=== PATIENT | male | born 1940 | race Two or more races ===

== ENCOUNTER 2017-03-11 21:42 | Inpatient (IN) | payer MEDICARE, BC ==
[~2017-03-11] VITALS: Ht 172.7 cm; Wt 81.6 kg
--- NOTE | 2017-03-11 21:55 | NUR ---
76 YO MALE BB RA FROM HOME. PT IS ALERT X 2, UNABLE TO TELL ME TIME OR SITUATION. PER FAMILY THIS IS HIS BASE LINE. PT DS TO ER BED, SKIN WARM AND DRY, RR EVEN AND UNLABORED. PT GOWNED, PLACE ON PERSONAL DEVELOPMENT EDUCATOR. NOTED DIAPHORETIC AND TACHYCARDIC. BROOKS NOTIFIED. AWAITING ORDERS FORM PROVIDER, WILL CONTINUE TO MONITOR
--- NOTE | 2017-03-11 21:56 | NUR ---
18G LEFT FA IV STARTED, BLOOD SAMPLE OBTAINED AND SENT TO LAB
--- NOTE | 2017-03-11 22:05 | NUR ---
EMT AT BED SIDE FOR EKG
[2017-03-11] MEDS ORDERED: ACETAMINOPHEN ES 500 MG TABLET ONE (22:11)
--- NOTE | 2017-03-11 22:15 | NUR ---
PT TRANASPORTED TO CT VIA GURNEY BY RADIOLOGY TEAM
[2017-03-11 22:18] LABS: CALCIUM, SERUM 8.6 mg/dL (8.5-10.1); CARBON DIOXIDE 24 mmol/L (21-32); CHLORIDE 103 mmol/L (98-107); CREATININE 1.2 mg/dL (0.6-1.3); GLUCOSE 138 mg/dL (74-106); SODIUM SERUM 138 mmol/L (136-145); UREA NITROGEN, BLOOD 20 mg/dL (7-18)
[2017-03-11 22:19] LABS: INR 1.81 (0.87-1.13); PROTHROMBIN TIME 20.1 SECS (9.5-12.7)
[2017-03-11 22:24] LABS: ALANINE AMINOTRANSFERASE 34 U/L (12-78); ALBUMIN 3.3 g/dL (3.4-5.0); ALKALINE PHOSPHATASE 76 U/L (46-116); ASPARTATE AMINOTRANSFERASE 29 U/L (15-37); BASOPHILS % (AUTO) 0.1 % (0.0-2.0); BILIRUBIN,DIRECT 0.2 mg/dL (0.0-0.2); BILIRUBIN,TOTAL 0.7 mg/dL (0.2-1.0); HEMATOCRIT 45 % (39-51); HEMOGLOBIN 15.1 g/dL (13.5-17.5); LYMPHOCYTES % (AUTO) 13.9 % (20.0-44.0); MEAN CORPUSCULAR HEMOGLOBIN 28 PG (26.0-33.0); MEAN CORPUSCULAR HGB CONC 33 g/dl (31.0-36.0); MEAN CORPUSCULAR VOLUME 85 fL (80-96); MONOCYTES # (AUTO) 0.7 /CMM (0.1-1.30); MONOCYTES % (AUTO) 9.8 % (2.0-12.0); NEUTROPHILS # (AUTO) 5.4 /CMM (1.8-8.9); NEUTROPHILS % (AUTO) 76.2 % (43.0-81.0); PLATELET COUNT (AUTO) 122 /CMM (150-450); RDW COEFFICIENT OF VARIATION 15.1 (11.5-15.0); RED BLOOD CELL COUNT(AUTO) 5.36 MIL/uL (4.5-6.0); TOTAL PROTEIN, SERUM 6.9 g/dL (6.4-8.2); WHITE BLOOD COUNT (AUTO) 7.1 K/uL (4.3-11.0)
[2017-03-11 22:25] LABS: TROPONIN I < 0.017 ng/mL (0.00-0.056)
[2017-03-11 22:29] LABS: APPEARANCE,URINE CLEAR (CLEAR); BILIRUBIN,URINE NEGATIVE (NEGATIVE); BLOOD, URINE 3+ Ery/uL (NEGATIVE); COLOR,URINE YELLOW (YELLOW); KETONES,URINE NEGATIVE (NEGATIVE); LEUKOCYTE ESTERASE ,URINE NEGATIVE (NEGATIVE); NITRITE, URINE NEGATIVE (NEGATIVE); PH,URINE 5.5 (5.0-8.0); PROTEIN,URINE TRACE mg/dl (NEGATIVE); UGLUCOSE NEGATIVE (NEGATIVE); UROBILINOGEN,URINE 0.2 EU/dL (0.2)
[2017-03-11] MEDS ORDERED: ACETAMINOPHEN 325 MG TABLET PO ONE (22:30)
[2017-03-11] MEDS ORDERED: IV NS 0.9% 500 ML BAG IV ONE (22:30)
[2017-03-11] MEDS ORDERED: IV NS 0.9% 1,000 ML BAG IV ONE ×2 (22:30)
[2017-03-11 22:35] LABS: BACTERIA,URINE None seen /HPF (None Seen); RBC,URINE 21-50 /HPF (0-2); SQUAMOUS EPITHELIAL CELL,UR Few /HPF (None Seen); WBC,URINE 0-2 /HPF (0-3)
--- NOTE | 2017-03-11 22:36 | NUR ---
MEDICATED PT ORDERED
[2017-03-11] MEDS ORDERED: CEFTRIAXONE 1GM BAG (ER ONLY) 50 ML IV ONE (23:29)
[2017-03-11] MEDS ORDERED: AZITHROMYCIN 500 MG VIAL ONE (23:29)
[2017-03-11] MEDS ORDERED: AZITHROMYCIN 500 MG in IV D5W 250 ML IV ONE (23:30)
[2017-03-11] MEDS ORDERED: CEFTRIAXONE 1GM BAG (ER ONLY) 1 GM/50 ML PIGGYBACK IV ONE (23:30)
--- NOTE | 2017-03-12 | NUR ---
RN ADMITTING NOTES Pt ARRIVED TO FLOOR VIA GURNEY. Pt IS ASLEEP, BUT EASILY AWAKENED. Pt IS A/OX3, VERBAL, ABLE TO MAKE NEEDS KNOWN. AND SON AT BEDSIDE. NO S/S OF ACUTE DISTRESS OR SOB. ON TELE SR. IV ACCESS ON LFA #18G. SAFETY MEASURES IN PLACE. BED LOW, LOCKED, HOB ELEVATED, SIDE RAILS UP, CALL LIGHT AND BEDSIDE TABLE WITHIN REACH. WILL CONTINUE TO MONITOR Pt THROUGHOUT THE NIGHT FOR SAFETY.
[2017-03-12] MEDS ORDERED: WARF6TAB23 PO (00:57)
[2017-03-12] MEDS ORDERED: CEFTRIAXONE 1 G in IV D5W 50 ML IV SCH ×2 (02:30→22:00)
[2017-03-12] MEDS ORDERED: ONDANSETRON HCL/PF 4 MG/2 ML VIAL IVP PRN (02:30)
[2017-03-12] MEDS ORDERED: AZITHROMYCIN 250 MG TABLET PO SCH ×2 (02:30→21:00)
[2017-03-12] MEDS ORDERED: ACETAMINOPHEN 325 MG TABLET PO PRN (02:30)
--- NOTE | 2017-03-12 02:30 | NUR ---
RN NOTES ROCEPHIN AND ZITHROMAX IV ALREADY GIVEN IN ER PRIOR TO ADMISSION TO [facility].
[2017-03-12] MEDS ORDERED: DEXAMETHASONE SOD PHOSPHATE 10 MG/ML VIAL IV ONE (03:30)
[2017-03-12] MEDS ORDERED: IBUPROFEN 600 MG TABLET PO PRN (03:30)
[2017-03-12 04:00] VITALS: BP 144/69
--- NOTE | 2017-03-12 06:44 | NUR ---
RN CLOSING NOTES NO SIGNIFICANT CHANGES IN Pt's CONDITION. Pt REMAINED STABLE THROUGHOUT THE NIGHT. NO S/S OF ACUTE DISTRESS OR SOB NOTED. ALL NEEDS MET AND ATTENDED TO. SAFETY MEASURES IN PLACE. TELE READING SR 66. WILL ENDORSE TO DAYSHIFT RN FOR Pt's JEANNE.
--- NOTE | 2017-03-12 07:10 | NUR ---
RN NOTES PT IS IN BED, AWAKE AND ALERT, RESTING COMFORTABLY. IV ON LFA INTACT AND SALINE LOCKED. PT ON O2 2L VIA NASAL CANNULA, NO SOB OR DISTRESS NOTED. PT HAS NO COMPLAINTS OF PAIN AT THIS TIME. SAFETY MEASURES ARE IN PLACE, CALL LIGHT IS IN REACH. WILL CONTINUE TO MONITOR.
[2017-03-12 07:15] VITALS: BP 125/78
[2017-03-12 08:00] VITALS: BP 125/78
[2017-03-12] MEDS: MENTHOL/CETYLPYRD (CEPACOL) 1 LOZ LOZENGE PO PRN ×2 (15:06→20:40)
[2017-03-12 16:00] VITALS: BP 130/73
[2017-03-12 16:53] LABS: INR 1.53 (0.87-1.13); PROTHROMBIN TIME 16.8 SECS (9.5-12.7)
[2017-03-12] MEDS ORDERED: WARFARIN SODIUM 2 MG TABLET PO SCH (17:00)
--- NOTE | 2017-03-12 19:10 | NUR ---
RN NOTES PT IS SITTING IN CHAIR AT BEDSIDE, WITH WALKER IN REACH. NO SIGNS OF DISTRESS OR PAIN NOTED. IV ON LFA INTACT AND PATENT, SALINE LOCKED. PT ON O2 VIA NASAL CANNULA 2L, SATING 97. ALL MEDS WERE GIVEN ORDERED. SAFETY MEASURES ARE IN PLACE. CALL LIGHT IS IN REACH. WILL ENDORSE TO STORE DETECTIVE RN FOR CONTINUITY OF CARE.
--- NOTE | 2017-03-12 19:30 | NUR ---
MS RN OPENING NOTES: PT IS SITTING UP IN CHAIT AT BEDSIDE. WALKER IS IN REACH. NO COMPLAINTS OF PAIN. NO S/S OF DISTRESS NOTED AT THIS TIME. PT HAS IV ON L FOREARM #18G AND IS PATENT AND INTACT. PT IS S/L. PT VOICED THAT HE HAS BEEN HAVING A SORE THROAT AND ASKING FOR CEPACOL. URINAL AT BEDSIDE. CALL LIGHT WITHIN PT'S REACH. BED KEPT IN LOW, LOCKED POSITION, AND SIDE RAILS X 2 UP. WILL CONTINUE TO MONITOR PT.
[2017-03-12 20:00] VITALS: BP 111/72
--- NOTE | 2017-03-12 20:40 | NUR ---
MS TOÑO NOTES: PT WAS ADMINISTERED CEPACOL FOR HIS COMPLAINT OF SORE THROAT.
--- NOTE | 2017-03-13 06:33 | NUR ---
MS RN CLOSING NOTES: ALL NEEDS WERE ATTENDED AND ANTICIPATED FOR. PT IS SITTING UP IN HIS BED AND IS AWAKE. PT IS A/OX3-4. PT HAS IV ON L FOREARM #18G AND IS PATENT AND INTACT. PT IS CURRENTLY S/L. URINAL AT BEDSIDE. OUTPUT WAS 500ML. WALKER AT BEDSIDE WELL. CALL LIGHT WITHIN PT'S REACH. BED KEPT IN LOW, LOCKED POSITION, AND SIDE RAILS X 2 UP. WILL ENDORSE TO AM NURSE FOR JEANNE.
[2017-03-13 06:45] LABS: BASOPHILS % (AUTO) 0.6 % (0.0-2.0); EOSINOPHILS % (AUTO) 0.6 % (0.0-6.0); HEMATOCRIT 47 % (39-51); HEMOGLOBIN 15.4 g/dL (13.5-17.5); LYMPHOCYTES # (AUTO) 1.7 /CMM (0.8-4.8); LYMPHOCYTES % (AUTO) 42.8 % (20.0-44.0); MEAN CORPUSCULAR HEMOGLOBIN 28 PG (26.0-33.0); MEAN CORPUSCULAR HGB CONC 33 g/dl (31.0-36.0); MEAN CORPUSCULAR VOLUME 85 fL (80-96); MONOCYTES # (AUTO) 0.4 /CMM (0.1-1.30); MONOCYTES % (AUTO) 10.4 % (2.0-12.0); NEUTROPHILS # (AUTO) 1.8 /CMM (1.8-8.9); NEUTROPHILS % (AUTO) 45.6 % (43.0-81.0); PLATELET COUNT (AUTO) 116 /CMM (150-450); RDW COEFFICIENT OF VARIATION 15.5 (11.5-15.0); RED BLOOD CELL COUNT(AUTO) 5.49 MIL/uL (4.5-6.0)
[2017-03-13 07:12] LABS: ALANINE AMINOTRANSFERASE 33 U/L (12-78); ALKALINE PHOSPHATASE 70 U/L (46-116); ASPARTATE AMINOTRANSFERASE 26 U/L (15-37); BILIRUBIN,TOTAL 0.6 mg/dL (0.2-1.0); CALCIUM, SERUM 8.6 mg/dL (8.5-10.1); CARBON DIOXIDE 28 mmol/L (21-32); CHLORIDE 108 mmol/L (98-107); CREATININE 1.1 mg/dL (0.6-1.3); GLUCOSE 95 mg/dL (74-106); MAGNESIUM 1.8 mg/dL (1.8-2.4); PHOSPHORUS 2.6 mg/dL (2.5-4.9); POTASSIUM 4.2 mmol/L (3.5-5.1); SODIUM SERUM 143 mmol/L (136-145); TOTAL PROTEIN, SERUM 6.8 g/dL (6.4-8.2); UREA NITROGEN, BLOOD 17 mg/dL (7-18)
--- NOTE | 2017-03-13 07:15 | NUR ---
RN NOTES PT IS SITTING IN CHAIR AT BEDSIDE, ALERT AND ORIENTED X3. PT HAS NO SIGNS OF DISTRESS OR PAIN NOTED. IV ON LFA INTACT AND SALINE LOCKED. SAFETY MEASURES ARE IN PLACE, CALL LIGHT IS IN REACH. WILL CONTINUE TO MONITOR.
[2017-03-13 07:32] LABS: CHOLESTEROL 153 mg/dL (<200); HDL CHOLESTEROL 46 mg/dL (40-60); LDL 94 mg/dL (0-99); THYROID STIMULATING HORMONE 1.238 uIU/mL (0.358-3.74); TRIGLYCERIDES 80 mg/dL (30-150)
[2017-03-13 08:00] VITALS: BP 103/68
[2017-03-13] MEDS ORDERED: FAMOTIDINE (20 MG) 20 MG TABLET PO SCH (09:00)
[2017-03-13] MEDS: MENTHOL/CETYLPYRD (CEPACOL) 1 LOZ LOZENGE PO PRN (09:25)
[2017-03-13] MEDS ORDERED: AZIT250T6 PO (09:50)
[2017-03-13] MEDS ORDERED: PRED20TA PO (09:52)
--- NOTE | 2017-03-13 11:02 | NUR ---
RN NOTES PT WAS DISCHARGED TO HOME ACCOMPANIED BY , IN STABLE CONDITION. DISCHARGE PAPERS AND EDUCATION WERE GIVEN. PT WAS TOLD TO FOLLOW UP WITH PCP WITHIN 1 WEEK. PT STATED HE WOULD MAKE THE APPOINTMENT ON HIS OWN. BELONGINGS LIST AND DISCHARGE FORM WAS SIGNED. PT WAS EDUCATED ON NEW PRESCRIPTIONS TO TAKE THAT WERE ORDERED. IV AND ID BAND WERE REMOVED.
== END 2017-03-13 11:50 | disposition home or self-care (01) | DRG 152 ==
LOC: ER 21:43 → EDBD 21:43 → TELE 23:34 → MED 03-12 10:21
PROVIDERS: ADMIT Nurse Practitioner Acute Care; ATTEND Nurse Practitioner Acute Care
DX: J06.0 Acute laryngopharyngitis (principal); J15.9 Unspecified bacterial pneumonia; D68.59 Other primary thrombophilia; Z86.718 Personal history of other venous thrombosis and embolism; Z79.01 Long term (current) use of anticoagulants
CPT/HCPCS: 36415; 70450-TC; 71010-TC; 80048-TC; 80053-TC; 80061-TC; 80076-TC; 81000-TC; 82962-TC; 83605-TC; 83735-TC; 84100-TC; 84443-TC; 84484-TC; 85025-TC; 85610-TC; 85730-TC; 87040-TC; 87070-TC; 87081-TC; 87086-TC; 93307-TC; 97116-TC; 97530-TC; A4216; A4606; J0456; J0696; J7030; J7040; J7060; Z7610